=== PATIENT | male | born 1995 | race Two or more races ===

== ENCOUNTER 2022-07-08 02:17 | Emergency (ER) | payer OTHER ==
[~2022-07-08] VITALS: Ht 188 cm; Wt 117.9 kg
--- NOTE | 2022-07-08 02:45 | NUR ---
BIBSELF FROM HOME C/O RIGHT 5TH DIGIT PAIN. "PUNCHED THE WALL" AROUND 0100. PT A/OX4. TOLERATING R/A WELL WITH NO SOB
[2022-07-08] MEDS ORDERED: IBUPROFEN 400 MG TABLET ONE (02:52)
--- NOTE | 2022-07-08 02:58 | NUR ---
ETCHER PHOTOENGRAVING AT PT'S BEDSIDE
[2022-07-08] MEDS ORDERED: IBUPROFEN 400 MG TABLET PO ONE (03:00)
--- NOTE | 2022-07-08 03:20 | NUR ---
RN applied prefab Velcro splint to PT's right hand;
--- NOTE | 2022-07-08 03:29 | NUR ---
Patient discharged to home in stable condition. Written and verbal after care instructions given. Patient verbalizes understanding of instruction.
[2022-07-08 04:55] VITALS: BP 121/71
== END 2022-07-08 03:21 | disposition home or self-care (01) ==
LOC: ER 02:21
DX: S60.221A Contusion of right hand, initial encounter (principal); Y08.89XA Assault by other specified means, initial encounter; Y93.89 Activity, other specified; Y92.89 Other specified places as the place of occurrence of the external cause; Y99.8 Other external cause status
CPT/HCPCS: 73130-TC

== ENCOUNTER 2022-10-03 10:36 | Emergency (ER) | payer OTHER ==
[~2022-10-03] VITALS: Ht 188 cm; Wt 111.1 kg
[2022-10-03 10:44] VITALS: BP 127/90
[2022-10-03] MEDS ORDERED: CEPH500T PO (11:06)
[2022-10-03] MEDS ORDERED: CEPHALEXIN MONOHYDRATE 500 MG CAPSULE PO ONE ×2 (11:24→11:30)
--- NOTE | 2022-10-03 11:27 | NUR ---
Patient discharged to home in stable condition. Written and verbal after care instructions given. Patient verbalizes understanding of instruction.
== END 2022-10-03 11:27 | disposition home or self-care (01) ==
LOC: ER 10:41
DX: L03.114 Cellulitis of left upper limb (principal); Z60.2 Problems related to living alone

== ENCOUNTER 2023-08-14 09:03 | Emergency (ER) | payer OTHER ==
[~2023-08-14] VITALS: Ht 188 cm; Wt 113.4 kg
[~2023-08-14 09:03] MED LIST: CEPH500T PO
[2023-08-14 09:06] VITALS: BP 140/62; TEMP 97.9
[2023-08-14] MEDS ORDERED: KETOROLAC TROMETHAMINE 15 MG/ML VIAL ONE (09:18)
[2023-08-14] MEDS ORDERED: IBUP-1955 PO (09:25)
[2023-08-14] MEDS ORDERED: LIDO30AD10 TP (09:25)
[2023-08-14] MEDS ORDERED: CYCL5TAB PO (09:25)
[2023-08-14 09:29] VITALS: O2SAT 98
[2023-08-14] MEDS ORDERED: KETOROLAC TROMETHAMINE 15 MG/ML VIAL IM ONE (09:30)
== END 2023-08-14 09:29 | disposition home or self-care (01) ==
LOC: ER 09:23
DX: S13.4XXA Sprain of ligaments of cervical spine, initial encounter (principal); M79.10 Myalgia, unspecified site; R51.9 Headache, unspecified; Z60.2 Problems related to living alone; V43.92XA Unspecified car occupant injured in collision with other type car in traffic accident, initial encounter; Y93.89 Activity, other specified; Y92.89 Other specified places as the place of occurrence of the external cause; Y99.8 Other external cause status
CPT/HCPCS: 99283; 96372; J1885